=== PATIENT | male | born 1990 | race Two or more races ===

== ENCOUNTER 2025-04-20 22:39 | Emergency (ER) | payer SELFPAY ==
[2025-04-20 22:41] VITALS: BP 153/100
[2025-04-20 23:17] VITALS: BP 135/81
--- NOTE | 2025-04-20 23:46 | ED.GENMED ---
History of Present Illness
General
Chief Complaint: Dizziness
Source: patient and family
Time Seen by Provider: 04/20/25 23:26
History of Present Illness
History of Present Illness:
34-year-old male with no past medical history presenting to the emergency department for evaluation of a multitude of symptoms including intermittently feeling shaky, lightheaded, flushing sensation, tingling to the bilateral arms/hands,
constipation, intermittently diminished p.o. intake, and upper abdominal discomfort. Symptoms have been ongoing for the last few months, today seem to be worse which is what prompted the patient to come to the ER. At time of my exam patient states
all of the symptoms seem to be fully resolved. Patient and family do note that patient and his significant other had a disagreement this morning, patient had a stressful conversation with other family members this afternoon and shortly after that
conversation symptoms started. Patient is currently here his , [place], staying in the [facility] for another unknown duration of time, was here because his delivered their baby who is
currently 9 months old. Social history was noted for vaping. Family history was noted for hypertension and hypercholesterolemia. Of note, patient family stated he had only eaten about a couple of dates today.
Past History
Past History
ED Past Medical History: None
ED Past Surgical History: None
Social History
Tobacco: Vaping
Alcohol: None
Drug: None
Personal:
Living: with family
Review of Systems
Review of Systems
All Other Systems: ROS reviewed and negative except as documented in HPI and ROS
Phy Exam
Physical Exam
Physical Exam:
GENERAL: Alert , in no apparent distress
EYE: clear conjunctiva b/l
HEAD: NCAT
ENT: mmm.
CARDIAC: Regular rate and rhythm .
LUNGS: Clear breath sounds bilaterally, no acute respiratory distress, no wheezes/rales/rhonchi
ABDOMEN: Soft, without focal tenderness, no r/g, no cvat
NEUROLOGICAL: Alert and oriented
SKIN: Warm and dry, skin intact.
MUSCULOSKELETAL: No edema, well perfused.
PSYCH: Normal and appropriate interaction the patient does have somewhat anxious affect
Scores
Heart Failure Risk
Heart Failure Risk Score: Not Applicable
Heart Score for Chest Pain Patients
STEMI patient?: Not applicable
Withdrawal Assessment of Alcohol
Withdrawal Assessment Completed?: Not applicable
Course
Orders/Labs/Results
Orders:
Orders
04/20/25 22:42
Electrocardiogram (*1) Urgent
Reason for Study: Vertigo / Dizzy
EKG- Treatment ONCE
04/20/25 23:46
Urinalysis Reflex To Culture Urgent
Date Specimen was Collected: 04/20/25
Time Specimen was Collected: 23:46
04/20/25 23:55
Complete Blood Count/With Diff Urgent
Comprehensive Metabolic Panel Urgent
TSH Reflex To Free T4 Urgent
Troponin I Urgent
Abnormal Lab Results
04/20/25
23:55
Absolute Neuts (auto) 7.2 H 10^3/uL
(1.4-6.5)
Absolute Lymphs (auto) 1.0 L 10^3/uL
(1.2-3.4)
Neutrophils % 82.8 H %
(42.2-75.2)
Lymphocytes % 11.2 L %
(20.5-51.1)
BUN 8 L mg/dl
(9-20)
Glucose 117 H mg/dl
(70-99)
Calcium 10.3 H mg/dl
(8.4-10.2)
Total Protein 8.3 H g/dl
(6.3-8.2)
Albumin 5.1 H g/dl
(3.5-5.0)
04/20/25 23:55
04/20/25 23:55
Vital Signs
Initial and Last Documented VS:
Initial Vital Signs
Temp Pulse Resp BP Pulse Ox
98.5 F 93 16 153/100 98
04/20/25 22:41 04/20/25 22:41 04/20/25 22:41 04/20/25 22:41 04/20/25 22:41
Last Documented Vital Signs
Temp Pulse Resp BP Pulse Ox
98.5 F 65 10 125/70 97
04/20/25 22:41 04/21/25 00:47 04/21/25 00:47 04/21/25 00:47 04/21/25 00:47
MDM/Problems Addressed
Differential Diagnosis Includes:
HTN/HTN urgency
Anxiety/Panic/Stress
ACS
Thyroid Disorder
DM
Electrolyte abnormality
Hyper/Hypoglycemia
MDM/Problems Addressed:
34-year-old male presenting to the emergency department for a multitude of symptoms that been occurring over the last few months, today seemingly worse. Symptoms overall seem nonspecific. Overall I doubt any emergent pathology. Patient was
hypertensive on arrival, at time of my exam blood pressure much improved. I do suspect a component of anxiety as well as stress given the patient's reported argument with family today. EKG done in triage is nonischemic. Will check labs including
thyroid studies and troponin. Anticipate discharge home. Patient currently does not have primary care provider. Will provide patient with information for medical clinic for follow-up.
*Pulse Oximetry
SaO2: 98
Oxygen Mode of Delivery: Room air
Patient hypoxic: no
*EKG
Heart Rate: 94
Rate: normal
Rhythm: sinus
[place]: normal axis
Ischemia: no ischemia
*Administrative Dietitian Interpretation
Rate: normal
Heart Rate: 74
Rhythm: sinus
*Critical Care Note
Total Time (30-74mins, 75-104mins- exclusive of procedures): Not Applicable
Patient Management
Escalation/DeEscalation of care consider admission/obs:
Patient's labs reassuring. He continues to be symptom-free. Outpatient follow-up for the medical clinic was provided. Stable for discharge and aware of return precautions
ED Attending Note
-
Portions of this chart may have been created with voice recognition software.� Occasional wrong word or��sound alike� substitutions may have occurred due to the inherent limitations of voice recognition software.
Discharge Plan
Departure
Patient Disposition: Home (Routine Discharge)
Date of Disposition: 04/21/25
Time of Disposition: 00:46
Patient with high blood pressure during this ER visit?: Yes
Discharge Problem:
Paresthesia
Instructions: BLOOD PRESSURE
Referrals:
[facility] [Outside]
NONE,* [Family Provider, Internal Medicine]
Interventions
Interventions:
*Risk Screen - Suicide Last Done: 04/20/25 22:43
*Neglect/Abuse Screening Last Done: 04/20/25 22:43
*Nursing Disposition Last Done: 04/21/25 00:50
ED- Neurological Assessment Last Done: 04/21/25 00:02
ED- Cardiac Assessment Last Done: 04/21/25 00:02
Discharge Date and Time
Discharge Date/Time: 04/21/25 00:50
Print Language: [place]
[2025-04-21 00:09] LABS: Hematocrit 39.6 % (39.0-52.0); Hemoglobin 14.3 g/dL (13.0-18.0); Mean Corp Hgb Conc. 36.1 g/dL (33.0-37.0); Mean Corpuscular Volume 84.1 fL (80.0-94.0); Nucleated Red Blood Cells % 0 % (-); Platelet Count 234 10^3/uL (130-400); Red Cell Dist. Width 11.9 % (11.5-14.5)
[2025-04-21 00:14] VITALS: BP 134/65
[2025-04-21 00:26] LABS: ALT (SGPT) 22 U/L (0-50); AST (SGOT) 25 U/L (17-59); Albumin 5.1 g/dl (3.5-5.0); Alkaline Phosphatase 46 U/L (38-126); Blood Urea Nitrogen 8 mg/dl (9-20); Calcium 10.3 mg/dl (8.4-10.2); Carbon Dioxide 29 mmol/L (22-30); Chloride 102 mmol/L (98-107); Glucose 117 mg/dl (70-99); Potassium 3.9 mmol/L (3.5-5.1); Sodium 138 mmol/L (135-145); Total Protein 8.3 g/dl (6.3-8.2); eGFR > 60.00
[2025-04-21 00:36] LABS: Urine Character Clear (Clear)
[2025-04-21 00:37] LABS: Troponin I < 0.012 ng/ml
[2025-04-21 00:47] VITALS: BP 125/70
== END 2025-04-21 00:50 | disposition home or self-care (01) ==
LOC: EMR 22:39
PROVIDERS: Physician Assistant Medical; EMERGENCY PHYSICIAN Student in an Organized Health Care Education/Training Program
DX: R20.2 Paresthesia of skin (principal); R10.10 Upper abdominal pain, unspecified; F17.290 Nicotine dependence, other tobacco product, uncomplicated
CPT/HCPCS: 99283; 80053; 81003; 84443; 84484; 85025; 93005

== ENCOUNTER 2025-05-10 22:52 | Emergency (ER) | payer SELFPAY ==
[2025-05-10 22:52] VITALS: BP 138/88
[2025-05-10 22:59] VITALS: BP 148/108
[2025-05-10 23:21] LABS: Hematocrit 41.1 % (39.0-52.0); Hemoglobin 14.4 g/dL (13.0-18.0); Mean Corp Hgb Conc. 35.0 g/dL (33.0-37.0); Mean Corpuscular Volume 85.3 fL (80.0-94.0); Nucleated Red Blood Cells % 0 % (-); Platelet Count 244 10^3/uL (130-400); Red Cell Dist. Width 12.0 % (11.5-14.5)
[2025-05-10 23:48] LABS: ALT (SGPT) 20 U/L (0-50); AST (SGOT) 20 U/L (17-59); Albumin 4.9 g/dl (3.5-5.0); Alkaline Phosphatase 46 U/L (38-126); Blood Urea Nitrogen 6 mg/dl (9-20); Calcium 9.8 mg/dl (8.4-10.2); Carbon Dioxide 28 mmol/L (22-30); Chloride 104 mmol/L (98-107); Glucose 141 mg/dl (70-99); Potassium 4.4 mmol/L (3.5-5.1); Sodium 139 mmol/L (135-145); Total Protein 7.6 g/dl (6.3-8.2); eGFR > 60.00
[2025-05-11 01:08] VITALS: BP 126/79
[2025-05-11 03:24] LABS: Magnesium 2.1 mg/dl (1.6-2.3)
--- NOTE | 2025-05-11 03:35 | ED.GENMED ---
History of Present Illness
General
Chief Complaint: Anxiety
Source: patient
Exam Limitations: none
Time Seen by Provider: 05/11/25 02:07
Nursing documentation reviewed up to this point in time: agreed with
History of Present Illness
History of Present Illness:
34-year-old male presenting to the emergency department today with concerns of dry mouth sensation to his hands and feet over the past few weeks has felt very tired as well. Denies any chest pain shortness of breath fevers or recent illnesses.
Past History
Past History
ED Past Medical History: None
ED Past Surgical History: None
Social History
Tobacco: Vaping
Alcohol: None
Drug: None
Personal:
Living: with family
Review of Systems
Review of Systems
Allergies reviewed?: Yes
All Other Systems: ROS reviewed and negative except as documented in HPI and ROS
Phy Exam
Physical Exam
Physical Exam:
GENERAL: Alert , in no apparent distress
EYE: pupils equal and reactive
NECK: Supple, no significant adenopathy.
ENT: o/p clr, mmm.
CARDIAC: Regular rate and rhythm .
LUNGS: Clear breath sounds bilaterally, no acute respiratory distress, no wheezes/rales/rhonchi
ABDOMEN: Soft, without focal tenderness, no r/g, no cvat
NEUROLOGICAL: Alert and oriented, no focal neuro deficits
SKIN: Warm and dry, skin intact.
MUSCULOSKELETAL: No edema, well perfused.
PSYCH: Normal and appropriate interaction.
Course
Orders/Labs/Results
Orders:
Orders
05/10/25 23:10
CMP [Comprehensive Metabolic Panel] Urgent
Complete Blood Count/With Diff Urgent
Lyme Progressive Urgent
Comment: ADDED
Magnesium Urgent
Comment: ADDED
Monotest Urgent
Comment: ADDED
05/11/25 02:41
Add On- LAB Urgent
Tests Added?: magnesium level, monospot, lyme progressive
05/11/25 03:11
ECG [Electrocardiogram (*1)] Urgent
Reason for Study: Tachycardia
05/11/25 03:12
EKG- Treatment ONCE
Abnormal Lab Results
05/10/25
23:10
Absolute Monos (auto) 0.7 H 10^3/uL
(0.1-0.6)
Monocytes % 10.5 H %
(1.7-9.3)
BUN 6 L mg/dl
(9-20)
Glucose 141 H mg/dl
(70-99)
05/10/25 23:10
05/10/25 23:10
Vital Signs
Initial and Last Documented VS:
Initial Vital Signs
Pulse BP
78 138/88
05/10/25 22:52 05/10/25 22:52
Last Documented Vital Signs
Temp Pulse Resp BP Pulse Ox
98.4 F 61 16 126/79 100
05/11/25 01:08 05/11/25 01:08 05/11/25 01:08 05/11/25 01:08 05/11/25 03:36
MDM/Problems Addressed
MDM/Problems Addressed:
34 old male presenting with multiple symptoms that been ongoing for a few weeks. On arrival vital signs are normal labs unremarkable had multiple additional tests that were done as an outpatient that did not result in any abnormalities. Here
patient in no distress no evidence of any emergent process. Advised for close outpatient follow-up. Return precautions given.
*Pulse Oximetry
SaO2: 100
Oxygen Mode of Delivery: Room air
Patient hypoxic: no (100)
*Critical Care Note
Total Time (30-74mins, 75-104mins- exclusive of procedures): Not Applicable
ED Attending Note
-
Portions of this chart may have been created with voice recognition software.� Occasional wrong word or��sound alike� substitutions may have occurred due to the inherent limitations of voice recognition software.
Discharge Plan
Departure
Patient Disposition: Home (Routine Discharge)
Date of Disposition: 05/11/25
Time of Disposition: 03:57
Patient with high blood pressure during this ER visit?: No
Condition: Good
Covid-19: Not Applicable
Discharge Problem:
Paresthesia, Dry mouth, Fatigue
Instructions: Anxiety, Adult (DC)
Referrals:
[facility] [Provider Group] - Follow up in 5-7 days
NONE,* [Family Provider, Internal Medicine]
Activity Restrictions/Additional Instructions:
You came to the emergency department with multiple symptoms. Here you have a reassuring assessment. Please follow closely as an outpatient for further management. Return for any worsening, new or concerning symptoms.
Interventions
Interventions:
*Risk Screen - Suicide Last Done: 05/10/25 22:59
*General Assessment Last Done: 05/11/25 01:09
*Neglect/Abuse Screening Last Done: 05/10/25 22:59
*ED- Fall Risk Assessment Last Done: 05/11/25 01:09
*ED COVID-19 Vaccine History Last Done: 05/11/25 01:09
*ED Influenza Vaccine History Last Done: 05/11/25 01:09
ED- Cardiac Assessment Last Done: 05/11/25 01:12
ED- Neurological Assessment Last Done: 05/11/25 01:12
ED-Psychological Assessment Last Done: 05/11/25 01:12
ED- Pulmonary Assessment Last Done: 05/11/25 01:12
Discharge Date and Time
Print Language: PALAU[place]
[2025-05-11 04:10] VITALS: BP 113/65
[2025-05-11 10:50] LABS: Lyme Antibody Screen, EIA Negative (Negative)
== END 2025-05-11 04:11 | disposition home or self-care (01) ==
LOC: EMR 22:52
PROVIDERS: EMERGENCY PHYSICIAN Emergency Medicine
DX: R20.2 Paresthesia of skin (principal); R68.2 Dry mouth, unspecified; R53.83 Other fatigue; F17.290 Nicotine dependence, other tobacco product, uncomplicated
CPT/HCPCS: 99284; 80053; 83735; 85025; 86308; 86618; 93005

== ENCOUNTER → 2025-05-26 11:07 | Outpatient (REF) | payer OTHER, SELFPAY ==
[2025-05-26 13:55] LABS: Vitamin D, 25-OH*** 32.9 ng/mL (30-80)
[2025-05-26 13:57] LABS: Blood Urea Nitrogen 8 mg/dl (9-20); Calcium 9.6 mg/dl (8.4-10.2); Carbon Dioxide 27 mmol/L (22-30); Chloride 103 mmol/L (98-107); Glucose 90 mg/dl (70-99); HDL Cholesterol 49 mg/dl; LDL Cholesterol, Calculated 136 mg/dl; Magnesium 2.2 mg/dl (1.6-2.3); Potassium 4.0 mmol/L (3.5-5.1); Sodium 139 mmol/L (135-145); Very Low Density Lipoprotein 22 mg/dl (0-30); eGFR > 60.00
[2025-05-26 18:40] LABS: Vitamin B12 265 pg/ml (239-931)
== END ==
LOC: REG 11:07
PROVIDERS: ATTENDING PHYSICIAN Nurse Practitioner Adult Health
DX: Z00.00 Encounter for general adult medical examination without abnormal findings (principal); K21.9 Gastro-esophageal reflux disease without esophagitis; K59.01 Slow transit constipation
CPT/HCPCS: 36415; 80048; 80061; 82306; 82607; 83013; 83735; 84100

== ENCOUNTER 2025-05-31 15:12 | Emergency (ER) | payer OTHER, SELFPAY ==
[2025-05-31 15:18] VITALS: BP 130/88
[2025-05-31 15:40] LABS: Hematocrit 44.3 % (39.0-52.0); Hemoglobin 15.0 g/dL (13.0-18.0); Mean Corp Hgb Conc. 33.9 g/dL (33.0-37.0); Mean Corpuscular Volume 87.9 fL (80.0-94.0); Nucleated Red Blood Cells % 0 % (-); Platelet Count 249 10^3/uL (130-400); Red Cell Dist. Width 11.9 % (11.5-14.5)
[2025-05-31 15:59] LABS: Albumin 5.1 g/dl (3.5-5.0)
[2025-05-31 16:05] LABS: Troponin I 0.012 ng/ml
[2025-05-31 16:11] LABS: ALT (SGPT) 25 U/L (0-50); AST (SGOT) 51 U/L (17-59); Alkaline Phosphatase 38 U/L (38-126); Blood Urea Nitrogen 7 mg/dl (9-20); Calcium 9.9 mg/dl (8.4-10.2); Carbon Dioxide 27 mmol/L (22-30); Chloride 101 mmol/L (98-107); Glucose 112 mg/dl (70-99); Magnesium 2.1 mg/dl (1.6-2.3); Potassium 4.5 mmol/L (3.5-5.1); Sodium 135 mmol/L (135-145); Total Protein 8.2 g/dl (6.3-8.2); eGFR > 60.00
[2025-05-31 17:50] VITALS: BP 136/85
[2025-05-31 18:00] VITALS: BP 117/96
[2025-05-31 19:00] VITALS: BP 117/70
--- NOTE | 2025-05-31 19:23 | ED.GENMED ---
History of Present Illness
General
Chief Complaint: Cardiac Symptoms
Time Seen by Provider: 05/31/25 17:56
History of Present Illness
History of Present Illness:
34-year-old male presents to the emergency department for evaluation of shortness of breath with exertion and difficulty taking a deep breath. He also reports frequent palpitations. The symptoms do seem to be worse with exertion as well as first
thing in the morning or after meals. They been ongoing for the past 4 to 6 weeks despite using Pepcid. He is an immigrant from [place] and currently follows with the [facility]. He states that he did have outpatient H. pylori breath testing that
was negative thus the [facility] did not seem to feel it was necessary that he see a gastrointestinal specialist. He denies any chest pain or abdominal pain at this time. He also questions whether there could be a mass located adjacent to his
lumbar spine, his family member at bedside states that it is palpable
Past History
Past History
ED Past Medical History: None
ED Past Surgical History: None
Social History
Tobacco: Vaping
Alcohol: None
Drug: None
Personal:
Living: with family
Review of Systems
Review of Systems
Allergies reviewed?: Yes
All Other Systems: ROS reviewed and negative except as documented in HPI and ROS
Phy Exam
Physical Exam
Physical Exam:
GEN: Well appearing, NAD, WDWN
HEENT: Oral mucosa moist, no scleral icterus
Cardiac: Regular rate and rhythm, no murmurs
Lung: No respiratory distress, no tachypnea, lungs clear to auscultation bilaterally
Abdomen: Soft, grossly nontender
MSK: No gross deformity or injuries, No palpable lumbar spinal bony or soft tissue abnormalities
Skin: Good color, no pallor or jaundice, no rashes
Neuro: AO x3, moves all extremities freely
Psych: Calm, cooperative
Course
Orders/Labs/Results
Orders:
Orders
05/31/25 15:13
ECG [Electrocardiogram (*1)] Urgent
Reason for Study: Chest Pain
05/31/25 15:14
EKG- Treatment ONCE
05/31/25 15:24
EKG [Electrocardiogram (*1)] Urgent
Reason for Study: Shortness of Breath
EKG- Treatment ONCE
CR Chest - 2 Views Urgent
Comment:
Reason For Exam: SOB
05/31/25 15:34
CMP [Comprehensive Metabolic Panel] Urgent
Complete Blood Count/With Diff Urgent
Magnesium Urgent
TSH Reflex To Free T4 Urgent
Troponin I Urgent
05/31/25 18:35
CR Lumbar Spine Comp Min 4 Vw* Urgent
Comment:
Reason For Exam: back pain
Abnormal Lab Results
05/31/25
15:34
WBC 4.2 L 10^3/uL
(4.8-10.8)
BUN 7 L mg/dl
(9-20)
Glucose 112 H mg/dl
(70-99)
Total Bilirubin 1.5 H mg/dl
(0.2-1.3)
Albumin 5.1 H g/dl
(3.5-5.0)
05/31/25 15:34
05/31/25 15:34
Vital Signs
Initial and Last Documented VS:
Initial Vital Signs
Temp Pulse Resp BP Pulse Ox
98.2 F 94 20 130/88 100
05/31/25 15:18 05/31/25 15:18 05/31/25 15:18 05/31/25 15:18 05/31/25 15:18
Last Documented Vital Signs
Temp Pulse Resp BP Pulse Ox
98.6 F 87 15 117/96 100
05/31/25 18:00 05/31/25 18:00 05/31/25 18:00 05/31/25 18:00 05/31/25 19:24
MDM/Problems Addressed
MDM/Problems Addressed:
Patient's workup is reassuring, while leukopenia may suggest some component of viral syndrome I suspect his symptoms are due to untreated GERD. Anxiety or psychosomatic complaints are also considered. Will start the patient on PPI and Carafate and
refer back to the free clinic for further coordination of outpatient follow-ups
*Pulse Oximetry
SaO2: 100
Oxygen Mode of Delivery: Room air
Patient hypoxic: no
*Critical Care Note
Total Time (30-74mins, 75-104mins- exclusive of procedures): Not Applicable
ED Attending Note
-
Portions of this chart may have been created with voice recognition software.� Occasional wrong word or��sound alike� substitutions may have occurred due to the inherent limitations of voice recognition software.
Discharge Plan
Departure
Patient Disposition: Home (Routine Discharge)
Date of Disposition: 05/31/25
Time of Disposition: 19:23
Patient with high blood pressure during this ER visit?: No
Discharge Problem:
Gastroesophageal reflux
Instructions: Acid reflux and GERD in adults - ED (DC)
Prescriptions:
New
pantoprazole 40 mg tablet,delayed release (DR/EC)
40 mg PO BID 14 Days Qty: 28 0RF
sucralfate [Carafate] 1 gram tablet
1 g PO AC Qty: 60 0RF
Referrals:
Darlene Mason MD [Active, Gastroenterology]
Activity Restrictions/Additional Instructions:
You will need to follow-up with the free clinic for any specialist referrals
You may stop taking the Pepcid and begin taking the pantoprazole and Carafate
Interventions
Interventions:
*Risk Screen - Suicide Last Done: 05/31/25 15:18
*General Assessment Last Done: 05/31/25 17:58
*Neglect/Abuse Screening Last Done: 05/31/25 17:58
*ED- Fall Risk Assessment Last Done: 05/31/25 18:02
*ED COVID-19 Vaccine History Last Done: 05/31/25 15:18
*ED Influenza Vaccine History Last Done: 05/31/25 15:18
ED- Pulmonary Assessment Last Done: 05/31/25 18:06
ED- Cardiac Assessment Last Done: 05/31/25 18:05
Discharge Date and Time
Print Language: BARBAD[place]
== END 2025-05-31 19:00 | disposition home or self-care (01) ==
LOC: EMR 15:12
PROVIDERS: EMERGENCY PHYSICIAN Student in an Organized Health Care Education/Training Program
DX: K21.9 Gastro-esophageal reflux disease without esophagitis (principal); D72.819 Decreased white blood cell count, unspecified; R00.2 Palpitations; F17.290 Nicotine dependence, other tobacco product, uncomplicated
CPT/HCPCS: 99285; 71046; 72110; 80053; 83735; 84443; 84484; 85025; 93005

== ENCOUNTER → 2025-06-27 13:48 | Outpatient (REF) | payer OTHER, SELFPAY | LOC: RCS 13:48 | PROVIDERS: ATTENDING PHYSICIAN Family Medicine | DX: R00.0 Tachycardia, unspecified (principal) | CPT/HCPCS: 93017; 93350 ==